=== PATIENT | female | born 1995 | race Caucasian/White ===

== ENCOUNTER → 2019-08-16 | Emergency (ER) | payer OTHER ==
[~2019-08-16] VITALS: Ht 175.3 cm; Wt 54.4 kg
== END | disposition home or self-care (01) ==
LOC: ER 12:30
DX: S52.021A Displaced fracture of olecranon process without intraarticular extension of right ulna, initial encounter for closed fracture (principal); W18.09XA Striking against other object with subsequent fall, initial encounter; Y93.89 Activity, other specified; Y92.838 Other recreation area as the place of occurrence of the external cause; Y99.8 Other external cause status